=== PATIENT | male | born 1955 | race Caucasian/White ===

== ENCOUNTER 2019-04-09 16:51 | Inpatient (IN) | payer OTHER ==
[~2019-04-09] VITALS: Ht 175.3 cm; Wt 84.8 kg
--- NOTE | ~2019-04-09 | OP ---
[address] [address] OPERATIVE REPORT Name: JAYLAN NICOLE Room: [address] IN M.R.#: [id number] Admission: 04/09/19 Attend Phys: Layne Valentin Discharge: Date of : 53 Report #: [id number] THIS REPORT FOR: //name// cc: Roman Lyons MD, Anthony MD THIS REPORT FOR: //name// CC: Roman Ochoa DATE OF SERVICE: 04/11/2019 UROLOGY OPERATIVE NOTE PREOPERATIVE DIAGNOSIS: Left ureteral stone. POSTOPERATIVE DIAGNOSIS: Left ureteral stone. PROCEDURES PERFORMED: 1. Cystoscopy. 2. Left retrograde pyelogram. 3. Left ureteroscopy. 4. Left ureteral stent placement. STAFF: Mark Rocha MD COMPLICATIONS: Inability to advance the ureteroscope due to a tight ureter. DRAIN: A 6 x 26 left ureteral stent. SPECIMENS: None. ESTIMATED BLOOD LOSS: None. INDICATIONS FOR PROCEDURE: The patient is a 63-year-old gentleman who presented to [facility] yesterday with left-sided flank pain. He was found to have a 6-7 mm distal left ureteral stone and proximal hydronephrosis. After thorough discussion, the decision was made to proceed with surgical intervention. DESCRIPTION OF PROCEDURE: On 04/11/2019, after consent was obtained, the patient was taken to the operating room and placed in supine position. He was then placed under general anesthesia. He received preoperative IV Cipro for antibiotic coverage. He was then placed in dorsal lithotomy and his genitals were prepped and draped in normal sterile fashion. Next, I began the procedure by inserting a 22.5-Kyrgyz rigid cystoscope transurethrally without any difficulty. Prostate did show bilobar hypertrophy [place] [address] OPERATIVE REPORT Name: JAYLAN NICOLE Room: [address] IN [facility].#: [id number] Admission: 04/09/19 Attend Phys: Layne Valentin Discharge: Date of : 53 Report #: [id number] had difficulty identifying the left UO, but I was eventually able to do so. At this point, I passed a sensor wire through the cystoscope and tried to cannulate the UO; however, I met immediate resistance, likely secondary to a stone. At this point, a 5-Kyrgyz open-ended stent was passed through the scope. I again attempted to cannulate the UO and advanced the wire, but again was unsuccessful. I then tried an angle-tipped Glidewire to cannulate the UO. This was able to advance approximately 1 cm, but then buckled on itself. At this point, I opted to withdraw the cystoscope. I then inserted a semirigid ureteroscope. I advanced this into the bladder and identified the left UO. I made multiple attempts to try to cannulate the UO using an angle-tipped Glidewire; however, this would coil in the distal ureter and it appeared to make a false passage outside of the ureter. Eventually, I was able to advance the scope into the distal ureter, identified the stone and was able to pass a sensor wire passed this up into the renal pelvis. At this point, given the multiple attempts at ureteral cannulization and obvious false passages, I opted to simply stent the patient. I withdrew the ureteroscope. I passed a 5-Kyrgyz open-ended stent over the sensor wire. Retrograde pyelogram demonstrated minimal hydronephrosis without any filling defects or extravasation. A sensor wire was then replaced. I then backloaded the cystoscope over the sensor wire, a 6 x 26 stent was passed up in the renal pelvis under fluoroscopic guidance, had a good coil in the urinary bladder under direct visual guidance. The patient's bladder was emptied, awakened from anesthesia. By: [id number] Rocha MD /beau
--- NOTE | ~2019-04-09 | PROC ---
[address] [address] PROCEDURE REPORT Name: JAYLAN NICOLE Room: [address] IN M.R.#: [id number] Admission: 04/09/19 Attend Phys: Layne Valentin Discharge: 04/12/19 Date of : 53 Report #: [id number] THIS REPORT FOR: //name// cc: Roman Lyons MD, Anthony MD ~ THIS REPORT FOR: //name// For GI report, please see the Provation report in Perceptive 7 content. By: 1300Medical Records Staff OSCAR /SIDDHARTHA
[2019-04-09 17:20] VITALS: BP 223/124
[2019-04-09] MEDS ORDERED: PRINIVIL5 MG PO (17:24)
[2019-04-09] MEDS ORDERED: EYE DROPS (17:24)
[2019-04-09 17:41] LABS: ABSOLUTE BASOPHILS 0.1 thou/uL (0.0-0.2); ABSOLUTE EOSINOPHILS 0.2 thou/uL (0.0-0.7); ABSOLUTE LYMPHOCYTES 2.4 thou/uL (0.8-5.3); ABSOLUTE MONOCYTES 0.8 thou/uL (0.0-1.2); ABSOLUTE NEUTROPHILS 3.6 thou/uL (1.6-8.1); EOSINOPHILS 2.6 %; HEMATOCRIT 47.7 % (42.0-52.0); HEMOGLOBIN 16.2 gm/dL (14.0-18.0); LYMPHOCYTES 33.7 %; MCH 29.3 pg (26.0-34.0); MCV 86.2 fL (80.0-100.0); MONOCYTES 11.6 %; MPV 8.5 fl. (7.2-11.1); NUCLEATED RBCS 0 /100WBC; PLATELET COUNT* 191 thou/uL (150-400); POLYS 51.1 %; RBC 5.53 mil/uL (4.50-6.00); RDW-CV 13.6 % (10.5-14.5)
[2019-04-09 17:53] LABS: PROTIME 10.3 Seconds (9.20-11.50)
[2019-04-09 17:56] LABS: CALCIUM 9.1 mg/dL (8.5-10.1); CREATININE 1.2 mg/dL (0.6-1.3); POTASSIUM 4.2 mmol/L (3.5-5.1); TOTAL PROTEIN 7.8 g/dL (6.4-8.2)
[2019-04-09 18:30] LABS: URINE BILIRUBIN NEGATIVE (Negative); URINE BLOOD 1+ (Negative); URINE CLARITY CLEAR; URINE COLOR YELLOW; URINE GLUCOSE-RANDOM NEGATIVE (Negative); URINE KETONES NEGATIVE (Negative); URINE LEUKOCYTES-REFLEX NEGATIVE (Negative); URINE NITRITE-REFLEX NEGATIVE (Negative); URINE PROTEIN NEGATIVE (Negative); URINE UROBILINOGEN 0.2 E.U./dl (0.2-1.0)
[2019-04-09 18:45] LABS: SQUAMOUS 0-3 Few /LPF (0-3)
[2019-04-09 18:46] LABS: AMORPHOUS URATES Moderate /LPF (None Seen); BACTERIA-REFLEX None Seen /HPF (None Seen); CASTS None Seen /LPF (None Seen); URINE RBC 3-10 Few /HPF (0-2); URINE WBC-REFLEX None Seen /HPF (0-5)
[2019-04-10] VITALS (7 sets, daily range): BP systolic 151–181; BP diastolic 84–107
[2019-04-10] MEDS ORDERED: LUMIGAN2.5 M1 OPHTHALMIC (09:28)
[2019-04-11 04:00] VITALS: BP 136/88
[2019-04-11 04:49] LABS: HEMATOCRIT 43.4 % (42.0-52.0); HEMOGLOBIN 14.8 gm/dL (14.0-18.0); MCH 29.4 pg (26.0-34.0); MCV 86.5 fL (80.0-100.0); MPV 8.7 fl. (7.2-11.1); RBC 5.02 mil/uL (4.50-6.00); RDW-CV 13.5 % (10.5-14.5); WBC 9.4 thou/uL (4.0-11.0)
[2019-04-11 05:14] LABS: CALCIUM 7.7 mg/dL (8.5-10.1); CREATININE 1.2 mg/dL (0.6-1.3); MAGNESIUM 1.7 mg/dL (1.8-2.4); POTASSIUM 3.8 mmol/L (3.5-5.1)
[2019-04-11 10:00] VITALS: BP 131/79
--- NOTE | 2019-04-11 13:57 | EKG ---
[place] [address] ELECTROCARDIOGRAM REPORT Name: JAYLAN NICOLE Room: [address] IN .R.#: [id number] Admission: 04/09/19 Attend Phys: Sami Ochoa Discharge: Date of : 53 Date of Service: 04/09/19 1818 Report #: [id number] THIS REPORT FOR: cc: Roman Lyons MD, Anthony MD Holkins,Anson Lee MD [facility] ~ THIS REPORT FOR: //name// [facility] ED Test Date: 2019-04-09 Test Time: 18:18:06 Pat Name: JAYLAN NICOLE Department: Room: [facility] Gender: M Tattoo Technician: ARIELLE : 1955 Requested By: Ching Peralta Order Number: [id number] MD: Anson Frank Measurements Intervals Spencer Rate: 103 P: 57 SC: 195 QRS: -21 QRSD: 93 T: 44 QT: 370 QTc: 485 Interpretive Statements Sinus tachycardia LAE, consider biatrial enlargement Borderline left axis deviation Minimal ST depression, lateral leads Borderline prolonged QT interval No previous ECG available for comparison Electronically Signed On 04-10-2019 12:45:33 PERINATAL TECHNICIAN by Anson Frank [email or web address] <ELECTRONICALLY SIGNED> By: Anson Frank MD, [facility] 04/10/19 1245 17 181 Anson Frank MD, [facility] /EPI
[2019-04-11 16:00] VITALS: BP 120/75
[2019-04-11 20:00] VITALS: BP 152/94
[2019-04-12] VITALS: BP 149/91
[2019-04-12 04:00] VITALS: BP 172/99
[2019-04-12 04:05] LABS: HEMATOCRIT 43.1 % (42.0-52.0); HEMOGLOBIN 14.4 gm/dL (14.0-18.0); MCH 29.1 pg (26.0-34.0); MCHC 33.4 g/dL (28.0-37.0); MCV 87.3 fL (80.0-100.0); MPV 8.9 fl. (7.2-11.1); RBC 4.93 mil/uL (4.50-6.00); RDW-CV 13.9 % (10.5-14.5); WBC 11.2 thou/uL (4.0-11.0)
[2019-04-12 04:38] LABS: CALCIUM 8.9 mg/dL (8.5-10.1); CREATININE 1.1 mg/dL (0.6-1.3); MAGNESIUM 1.7 mg/dL (1.8-2.4)
[2019-04-12] MEDS ORDERED: OXYBUTYNIN 5 MG5 M2 PO (07:21)
[2019-04-12] MEDS ORDERED: CIPRO500 M1 PO (07:21)
[2019-04-12] MEDS ORDERED: MIRALAX119 GM PO (07:21)
[2019-04-12] MEDS ORDERED: FLOMAX0.4 MG PO (07:21)
[2019-04-12] MEDS ORDERED: HYOSCYAMINE0.125 MG PO (07:21)
[2019-04-12 09:05] VITALS: BP 155/95
[2019-04-12 16:27] VITALS: BP 164/92
[2019-04-12 16:47] VITALS: BP 164/92
[2019-04-12] MEDS ORDERED: NORCO 5-325 TA1 EAC1 PO (17:02)
[2019-04-12] MEDS ORDERED: PYRIDIUM200 M2 PO (17:36)
[2019-04-12 17:45] VITALS: BP 164/92
--- NOTE | 2019-04-12 19:35 | CON ---
[address] [address] CONSULTATION Name: JAYLAN NICOLE Room: [address] IN .R.#: [id number] Admission: 04/09/19 Attend Phys: Layne Valentin Discharge: Date of : 53 Report #: [id number] THIS REPORT FOR: //name// cc: Roman Lyons MD, Anthony MD ~ THIS REPORT FOR: //name// CC: Roman Ochoa DICTATED BY: Jada Guzman [facility] DATE OF SERVICE: 04/11/2019 Please note at the time of this dictation, the patient was seen and physically examined by myself. REASON FOR CONSULTATION: Abnormal CT and rectal bleeding, left-sided abdominal pain. HISTORY OF PRESENT ILLNESS: This 63-year-old male who presented to the Emergency Room with having some left-sided abdominal pain that started earlier on the day of admission. Prior to that, he has been noticing bright red blood in his stools more streaking 3 days prior to admission. He states this has been more on a regular basis, whereas before he had been intermittent in the past. The patient states that he has had this bleeding intermittently in the past as well, but not regularly like it was this time. The patient states that he has regular bowel movements daily that are soft and formed. He did have a little bit of diaphoresis with this and left lower quadrant abdominal discomfort. The patient denies any nausea or vomiting that he experienced with this at this time. The patient did have a colonoscopy back in [place] 10-12 years ago and states that it was completely normal. ALLERGIES: PENICILLIN. MEDICATIONS: From home include lisinopril and some eye drops. PAST MEDICAL HISTORY: Hypertension and glaucoma. PAST SURGICAL HISTORY: He just underwent an urethral stent placement. FAMILY HISTORY: Negative for any GI or female cancers. SOCIAL HISTORY: Negative for any alcohol, tobacco [place] [address] CONSULTATION Name: JAYLAN NICOLE Tamiko Room: [address]#: [id number] Admission: 04/09/19 Attend Phys: Layne Valentin Discharge: Date of : 53 Report #: [id number] REVIEW OF SYSTEMS: Twelve-point review of systems is essentially negative except what is mentioned in the HPI. PHYSICAL EXAMINATION: VITAL SIGNS: Temperature 36.8, pulse 72, respirations 16, blood pressure 136/88. HEART: Regular rate and rhythm. LUNGS: Clear. ABDOMEN: Soft, positive bowel sounds in all 4 quadrants with no masses or tenderness noted. LABORATORY DATA: Hemoglobin is 14.8, white count is 9.4, platelets 149, GFR 61. CT and LFTs are completely normal. CT of the abdomen and pelvis showed hepatic steatosis and an obstructing 7 mm calculus in the left distal ureter with some moderate left hydronephrosis was noted. Mild mucosal wall thickening involving the descending and sigmoid colon also noted. IMPRESSION: 1. Rectal bleeding. 2. Abdominal pain, which is resolved. 3. Abnormal CT showing thickening of the descending and sigmoid colon. 4. Hepatic steatosis. 5. Obstructing ureter stone, status post stent. PLAN: 1. Colonoscopy tomorrow with Dr. Moreno. 2. We will start his prep today. 3. Further recommendations to be made once the procedure has been performed. Thank you for allowing us to participate in this patient's care. Please do not hesitate to call with any questions in regard to this consult. Agree with the above assessment and plan by Jada Tran VK. <ELECTRONICALLY SIGNED> By: Anton Moreno MD 04/12/19 1935 1025 [id number] Moreno MD /nt
== END 2019-04-12 17:45 | disposition home or self-care (01) | DRG 659 ==
LOC: M.ERS 16:51 → M.ORTHSURG 21:16 → M.TBA-ER 21:16 → M.ORTHSURG 04-10 08:15
PROVIDERS: Internal Medicine; Personal Emergency Response Attendant; ADMIT Internal Medicine
DX: N13.2 Hydronephrosis with renal and ureteral calculous obstruction (principal); K57.31 Diverticulosis of large intestine without perforation or abscess with bleeding; D12.8 Benign neoplasm of rectum; I10 Essential (primary) hypertension; Z96.0 Presence of urogenital implants; K76.0 Fatty (change of) liver, not elsewhere classified; G44.009 Cluster headache syndrome, unspecified, not intractable; R31.29 Other microscopic hematuria; K64.4 Residual hemorrhoidal skin tags; Z79.899 Other long term (current) drug therapy; Z88.0 Allergy status to penicillin